=== PATIENT | male | born 1980 | race African-American/Black ===

== ENCOUNTER 2022-07-21 01:30 | Emergency (ER) | payer SELFPAY ==
[2022-07-21 01:40] VITALS: TEMP 97.9; BMI 39.1
[2022-07-21] MEDS: ALBUTEROL SO4 2.5/IPRATROPIUM 0.5 INH SOL 3 ML VIAL.NEB. NEB SCH ×4 (01:40→04:00)
[2022-07-21] MEDS ORDERED: DEXAMETHASONE SOD PHOSPHATE 10 MG/1 ML VIAL IVPUSH ONE (01:42)
[2022-07-21] MEDS ORDERED: MAGNESIUM SULF 50% (8.12 MEQ/2 ML-1 GM VIAL) IVPB ONE (01:43)
[2022-07-21] MEDS ORDERED: MAGNESIUM SULFATE IN WATER 2 GM/50 ML IVPB IVPB ONE (01:48)
[2022-07-21 02:22] LABS: HEMATOCRIT 41.1 % (35.4-49); HEMOGLOBIN 14.1 GM/dL (11.7-16.9); LYMPH % 36.4 % (8-40); MCH 31.1 pg (25.7-33.7); MCHC 34.3 g/dl (32.0-35.9); MEAN CELL VOLUME 90.7 fl (80-96); MEAN PLT VOLUME 8.8 fl (7.5-11.1); MONO % 13.3 % (3.8-10.2); NEUT % 41.3 % (42.8-82.8); PLATELET COUNT 290 10^3/uL (134-434); RBC 4.53 M/mm3 (4.00-5.60); RDW 12.8 % (11.9-15.9); WHITE BLOOD COUNT 4.9 K/mm3 (4.0-10.0)
[2022-07-21 02:40] LABS: CHLORIDE 104 mmol/L (98-107); SODIUM 136 mmol/L (136-145)
[2022-07-21 02:42] LABS: ALBUMIN 3.7 g/dl (3.4-5.0); BLOOD UREA NITROGEN 8.4 mg/dL (7-18); CALCIUM 8.6 mg/dL (8.5-10.1); CO2 25 mmol/L (21-32); GLUCOSE,RANDOM 103 mg/dL (74-106)
[2022-07-21 02:45] LABS: CREATININE 1.3 mg/dL (0.55-1.3)
[2022-07-21 02:46] LABS: SGOT/AST 92 U/L (15-37)
[2022-07-21 02:47] LABS: BILIRUBIN,TOTAL 0.5 mg/dL (0.2-1); TOT PROT 7.8 g/dl (6.4-8.2)
[2022-07-21 02:48] LABS: ALK PHOS 42 U/L (45-117)
[2022-07-21 03:06] LABS: ANION GAP 7 MMOL/L (8-16); SGPT/ALT 61 U/L (13-61)
[2022-07-21] MEDS ORDERED: ALBUTEROL SO4 2.5/IPRATROPIUM 0.5 INH SOL 3 ML VIAL.NEB. NEB ONE (04:04)
[2022-07-21 04:09] VITALS: BP 149/74; PULSE 80; RESP 20
== END 2022-07-21 04:10 | disposition home or self-care (01) ==
LOC: JER 01:30
PROC: 3E0F7GC Introduction of Other Therapeutic Substance into Respiratory Tract, Via Natural or Artificial Opening (ICD-10-PCS; principal; 2022-07-21)
PROC: 3E0333Z Introduction of Anti-inflammatory into Peripheral Vein, Percutaneous Approach (ICD-10-PCS; 2022-07-21)
PROC: 3E033GC Introduction of Other Therapeutic Substance into Peripheral Vein, Percutaneous Approach (ICD-10-PCS; 2022-07-21)
DX: J45.21 Mild intermittent asthma with (acute) exacerbation (principal)
CPT/HCPCS: 36415; 71045-TC-FY; 80053; 85025; 93005; 93010; 99284-25; J1100